=== PATIENT | female | born 1935 | race Caucasian/White ===

== ENCOUNTER → 2018-08-24 | Day surgery (SDC) | payer MEDICARE ==
[2018-08-23 12:10] LABS: BASOPHILS % 0.6 % (0.0-1.0); EOSINOPHILS # (AUTO) 0.2 (0.0-0.4); EOSINOPHILS % 4.2 % (0.0-6.0); HEMATOCRIT 39.9 % (34.2-44.1); LYMPHOCYTES # (AUTO) 1.3 (1.0-3.2); LYMPHOCYTES % 23.5 % (18.0-39.1); MEAN CORPUSCULAR HEMOGLOBIN 29.4 pg (28-32); MEAN CORPUSCULAR HGB CONC 32.6 g/dL (31-35); MEAN CORPUSCULAR VOLUME 90.3 fL (81-99); MONOCYTES # (AUTO) 0.4 (0.2-0.8); MONOCYTES % 7.4 % (4.4-11.3); NEUTROPHILS # (AUTO) 3.5 (2.1-6.9); NEUTROPHILS % 63.7 % (38.7-80.0); PLATELET COUNT 316 x10e3/uL (140-360); RED BLOOD COUNT 4.42 x10e6/uL (3.6-5.1); RED CELL DISTRIBUTION WIDTH 16.3 % (11.7-14.4)
[~2018-08-24] MED LIST: ACETAMINOPHEN325 M1 PO; ALLERGY MED PO; ASPIRIN81 MG PO; CITALOPRAM HBR20 MG PO; FENOFIBRATE145 MG; FENOFIBRATE145 MG PO; FENTANYL CITRATE/PF 100MCG/2 ML INJ ONE; FENTANYL TP; FENTANYL1 EAC1 TOP; HYDROCODON-ACE1 EA11 PO; LASIX40 MG PO; LEVOTHYROXINE100 MCG PO; LIDOCAINE HCL 2% LOCAL INJ 5 ML SDV VIAL INJ ONE; LOSARTAN POTAS100 MG PO; LOVASTATIN20 MG PO; LUNESTA3 MG PO; METFORMIN HCL500 M2 PO; METHADONE HCL5 MG PO; METOPROLOL TARTRATE INJ 1 MG/ML VIAL ONE; NAPROXEN500 MG PO; OMEGA 3 1,0001 EACH; OMEGA 3 1,0001 EACH PO; OMEPRAZOLE40 MG PO; PROPANOLOL PO; PROPOFOL IV EMULSION 10 MG/ML 20 ML VIAL ONE; TRIAMCINOLONE A15 G1; ULTRAM 50MG50 MG PO; VITAMIN B12-FO1 EACH; VOLTAREN100 GM TOP; [UNRECOGNIZED DRUG - OTHER] PO
--- OUTSIDE RECORDS SUMMARY | 2018-08-24 11:15 | XMS REPORT ---
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 Allergies, Adverse Reactions, Alerts This patient has no known allergies or adverse reactions. Medications This patient has no known medications.
[2018-08-24 13:45] VITALS: BP 161/78
--- NOTE | 2018-08-24 19:51 | Operative Report ---
DATE OF PROCEDURE: SURGEON: Keegan Ward MD NAME OF THE PROCEDURE: EGD and colonoscopy. PREPROCEDURE DIAGNOSES: The patient with history of acid reflux, nausea, vomiting, change of bowel habits, rectal discomfort, epigastric pain, and history of Tompkins's esophagus, and history of adenomatous colon polyps, here for EGD and colonoscopy. DESCRIPTION OF PROCEDURE: After informed and written consent, premedications with monitored anesthesia care, standard adult video Olympus gastroscope was introduced into the mouth, esophagus, stomach, into the second portion of the duodenum. The findings are as follow. The first and second portion of the duodenum appear to be normal. Antrum, body, fundus unremarkable and biopsies were done from the antrum and body to rule out H. pylori. Retroflexion revealed a large sliding hiatal hernia. There were no obvious Ricardo's ulcers. The esophagus was unremarkable except for the GE junction, which showed an irregular Z-line and biopsies were done to rule out any possibility of Tompkins's esophagus. The adult video colonoscope was introduced into the rectum and all the way into the terminal ileum. The prep was fair. There was some retained stool noted. The terminal ileum, cecum, ileocecal valve, ascending, descending colon were normal. The sigmoid colon showed a diminutive polyp, removed by cold biopsy forceps. Retroflexion revealed moderate internal hemorrhoids. IMPRESSION: Colon polyp, internal hemorrhoids, and hiatal hernia. RECOMMENDATIONS: Continue current medications, check the biopsies, then accordingly follow. Further recommendations will be based on the patient's clinical course. Keegan Ward MD SR/MODL /[id number]
== END | disposition home or self-care (01) ==
LOC: OR 11:11
PROVIDERS: ATTEND Internal Medicine Gastroenterology
DX: K22.70 Barrett's esophagus without dysplasia (principal); D12.5 Benign neoplasm of sigmoid colon; K21.0 Gastro-esophageal reflux disease with esophagitis; K59.00 Constipation, unspecified; K44.9 Diaphragmatic hernia without obstruction or gangrene; K64.8 Other hemorrhoids; Z71.3 Dietary counseling and surveillance; E66.3 Overweight; G14 Postpolio syndrome; I10 Essential (primary) hypertension; M06.9 Rheumatoid arthritis, unspecified; E11.9 Type 2 diabetes mellitus without complications; Z88.6 Allergy status to analgesic agent; Z88.8 Allergy status to other drugs, medicaments and biological substances; Z01.810 Encounter for preprocedural cardiovascular examination; Z01.812 Encounter for preprocedural laboratory examination; Z79.84 Long term (current) use of oral hypoglycemic drugs; Z68.26 Body mass index [BMI] 26.0-26.9, adult; Z86.73 Personal history of transient ischemic attack (TIA), and cerebral infarction without residual deficits; Z87.891 Personal history of nicotine dependence
CPT/HCPCS: 36415 ×2; 43239; 45380; 82948; 85025; 88305; 88312; 93005; J2001; J2704